=== PATIENT | female | born 1995 | race Caucasian/White ===

== ENCOUNTER 2016-07-24 20:55 | Emergency (ER) | payer OTHER ==
[~2016-07-24] VITALS: Ht 162.6 cm; Wt 90.7 kg
[2016-07-24 20:58] VITALS: BP 130/63
[2016-07-24] MEDS ORDERED: ACETAMINOPHEN EXTRA STRENGTH 500 MG TAB ONE (21:10)
--- NOTE | 2016-07-24 21:50 | NUR ---
PT TAKEN TO [facility] FROM [facility]
--- NOTE | 2016-07-24 22:07 | NUR ---
PT TAKEN TO BED 4
--- NOTE | 2016-07-24 22:12 | NUR ---
21 Y/O F W/C/O SORETHROAT, DRY COUGH, CHILLS, FEVER AND RUNNY NOSE X 4 DAYS. O2 SAT 98% RA, NO S/S OF RESP DISTRESS NOTED AT THE MOMENT. ER MADE AWARE.
--- NOTE | 2016-07-24 22:24 | NUR ---
Dr. Mora evaluating patient at bedside.
[2016-07-24] MEDS ORDERED: KETOROLAC 30 MG/ML VIAL IM ONE (22:30)
[2016-07-24] MEDS ORDERED: HYDROcodone/APAP 5/325 MG 1 TAB TAB PO ONE (22:30)
[2016-07-24] MEDS ORDERED: DEXAMETHASONE 10 MG/ML VIAL PO ONE (22:30)
[2016-07-24 22:56] VITALS: BP 116/63
--- NOTE | 2016-07-24 22:56 | NUR ---
Patient discharged with v/s stable. Written and verbal after care instructions given and explained. Patient alert, oriented and verbalized understanding of instructions. Ambulatory with steady gait. All questions addressed prior to discharge. ID band removed. Patient advised to follow up with PMD TOMORROW OR RETURN TO ER IF CONDITION WORSENS. Rx of AMOXICILLIN, NAPROSYN AND TYLENOL WITH CODEINE given. Patient educated on indication of medication including possible reaction and side effects. Opportunity to ask questions provided and answered.
== END 2016-07-24 22:56 | disposition home or self-care (01) ==
LOC: MED 20:55
DX: J02.9 Acute pharyngitis, unspecified (principal); R50.9 Fever, unspecified; F17.210 Nicotine dependence, cigarettes, uncomplicated
CPT/HCPCS: 71010; 96372; 99283; J1100; J1885